=== PATIENT | male | born 1950 | race Caucasian/White ===

== ENCOUNTER 2019-07-13 12:11 | Inpatient (IN) | payer MEDICARE, BC ==
[2019-07-13] VITALS (521 sets, daily range): BP systolic 95–108; BP diastolic 83–88; PULSE 112–140; TEMP 97.9–98.2; O2SAT 80–100
[~2019-07-13] VITALS: Ht 182.9 cm; Wt 103.5 kg
[~2019-07-13 12:11] MED LIST: ERYTHROCIN STE500 M1 PO; NEOMYCIN SULFA500 MG PO
[2019-07-13] MEDS ORDERED: NORVASC 5MG5 MG/TAB PO (12:25)
[2019-07-13] MEDS ORDERED: TYLENOL 500MG500 MG PO (12:26)
[2019-07-13] MEDS ORDERED: ASPIRIN 32325 MG/TAB PO (12:26)
[2019-07-13] MEDS ORDERED: ADVIL200 MG PO (12:27)
[2019-07-13] MEDS ORDERED: DITROPAN 5MG TAB5 MG PO (12:27)
[2019-07-13 13:20] LABS: BASO # 0.1 (0.0-0.2); BASO % 0.5 % (0.0-2.0); GRAN # 6.5 (1.4-6.5); GRAN % 70.4 % (42.2-75.2); HEMATOCRIT 39.7 % (42.0-52.0); HEMOGLOBIN 12.8 g/dl (13.5-18.0); LYMPH # 1.9 (1.2-3.4); LYMPH % 20.8 % (20.0-51.0); MEAN CELL VOLUME 98 fl (80.0-100.0); MEAN CORPUSCULAR HEMOGLOBIN 31 pg (27.0-31.0); MEAN CORPUSCULAR HGB CONC 32 g/dl (33.0-37.0); MEAN PLATELET VOLUME 10.8 fl (7.4-10.4); MONO # 0.7 (0.1-0.6); MONO % 7.9 % (1.7-9.3); PLATELET COUNT 254 K/mm3 (130-400); RED BLOOD COUNT 4.07 M/mm3 (4.20-5.60); REDCELL DISTRIBUTION WIDTH-CV 14.3 % (11.5-14.5)
[2019-07-13 13:22] LABS: ALANINE AMINOTRANSFERASE 22 U/L (21-72); ALBUMIN 4.3 gm/dL (3.5-5.0); ALKALINE PHOSPHATASE 64 U/L (50-136); ANION GAP 10 mmol/L (7-16); AST,SGOT 27 U/L (15-37); BILIRUBIN,TOTAL 0.8 mg/dL (0.0-1.0); BLOOD UREA NITROGEN 24 mg/dL (9-20); CALCIUM 9.4 mg/dL (8.4-10.2); CARBON DIOXIDE 24 mmol/L (22-30); CHLORIDE 109 mmol/L (98-107); CREATININE, serum 0.76 (0.66-1.25); GLUCOSE 115 mg/dL (74-106); LIPASE 57 U/L (23-300); POTASSIUM 4.2 mmol/L (3.4-5.0); SODIUM 143 mmol/L (137-145)
[2019-07-13 13:36] LABS: TROPONIN-I < 0.012 ng/mL (0.000-0.035)
--- NOTE | 2019-07-13 14:30 | NUR ---
NOTIFIED AVSU GUZMAN OF PTS HR AFIB UP TO THE 140'S AND BP IN THE 80'S. ORDER RECEIVED FOR IVF BOLUS. NOTIFIED THIS RN TO CHANGE FROM CARDIZEM TO AMIO. ALSO FOR CARDIOLOGY CONSULT FOR POSSIBLE MICHAELLE/CARDIOVERSION. PT CHANGED TO AMIO AND ANOTHER IVF BOLUS HUNG. CAME BEDSIDE TO [facility]. PLAN TO DO MICHAELLE CARDIOVERSION TOMORROW. PT'S HR NOW RANGING 90-130'S. BP IN THE 100'S. PICC LINE PLACED FOR POSSIBLE NEED OF LEVOPHED. PT AND UPDATED ON PLAN. BEDSIDE TO [facility] PT. LABS DRAWN. HEPARIN GTT STARTED.
[2019-07-13 17:00] LABS: PARTIAL THROMBOPLASTIN TIME 29.1 SECONDS (26.0-37.0)
--- NOTE | 2019-07-13 17:14 | NUR ---
ECHO AND ANESTHESIA NOTIFIED OF MICHAELLE AND CARDIOVERSION TOMORROW. PLAN FOR AROUND 1000.
[2019-07-14] VITALS (871 sets, daily range): BP systolic 102–131; BP diastolic 64–102; PULSE 66–140; TEMP 97.7–98.1; O2SAT 77–100
[2019-07-14 06:10] LABS: BASO % 0.5 % (0.0-2.0); GRAN # 6.4 (1.4-6.5); GRAN % 75.4 % (42.2-75.2); HEMOGLOBIN 11.2 g/dl (13.5-18.0); LYMPH # 1.5 (1.2-3.4); LYMPH % 17.7 % (20.0-51.0); MEAN CELL VOLUME 98 fl (80.0-100.0); MEAN CORPUSCULAR HEMOGLOBIN 32 pg (27.0-31.0); MEAN CORPUSCULAR HGB CONC 32 g/dl (33.0-37.0); MEAN PLATELET VOLUME 11.1 fl (7.4-10.4); MONO # 0.5 (0.1-0.6); PLATELET COUNT 186 K/mm3 (130-400); RED BLOOD COUNT 3.52 M/mm3 (4.20-5.60); REDCELL DISTRIBUTION WIDTH-CV 14.5 % (11.5-14.5)
[2019-07-14 06:11] LABS: HEMATOCRIT 34.6 % (42.0-52.0)
--- NOTE | 2019-07-14 07:02 | NUR ---
Bedside report recieved from KIMBERLI Thurston. Patient sleeping at this time. Amiodarone and Heparin gtt rates and concentrations verified. MIVF rate verified. SHAILESH PICC uncomplicated. RFA peripheral sites x2 locked and uncomplicated. Patient with Afib noted on monitor. Care assumed at this time.
[2019-07-14 07:55] LABS: CALCIUM 8.7 mg/dL (8.4-10.2); CREATININE, serum 0.66 (0.66-1.25)
--- NOTE | 2019-07-14 10:00 | NUR ---
Dr. Salinas rounds at this time. Orders as entered CPOE.
--- NOTE | 2019-07-14 10:10 | NUR ---
Dr. Card rounds at this time. Orders as entered CPOE.
--- NOTE | 2019-07-14 10:30 | NUR ---
Bedside MICHAELLE/ cardioversion completed by Dr. Card at this time. Prior consent signed and on patient chart. Chad Figueroa CRNA present to provide and monitor sedation. This RN present to monitor and assist and Paola RN to assist with MICHAELLE. See associated moderate sedation assessment, flowsheet, and recovery documentation. Patient provided 1 shock of 150j per VORB by with successful cardioversion to NSR. Procedure lasts from 6910-1468. No complications noted. RT called for EKG to confirm rhythm conversion. Care ongoing.
--- NOTE | 2019-07-14 11:51 | NUR ---
Initial visit; Patient and his thanked Network Security Analyst for looking in on him and offering God's blessings.
[2019-07-14] MEDS ORDERED: ELIQUIS 5MG PO (15:10)
[2019-07-14] MEDS ORDERED: PACERONE200 MG PO (15:11)
--- NOTE | 2019-07-14 15:19 | NUR ---
PARKING [employer]AU[employer] student met with the patient and the patient's , Serina to complete initial intake. The patient lives in [place] with Serina. The patient denies DME usage and reports independence with ADLs. The patient's PCP is Dr. Rogers and patient receives medications from [facility] and [facility]. The patient does not have advanced directives in the EMR but reports they are completed and designate Serina. patient financial services coordinator will continue to follow to ensure a safe discharge.
--- NOTE | 2019-07-14 15:30 | NUR ---
Discharge education provided to patient and with understanding verbalized.
--- NOTE | 2019-07-14 15:36 | NUR ---
Patient discharged by ambulation at this time to private car. Care completed at this time.
== END 2019-07-14 15:36 | disposition home or self-care (01) | DRG 308 ==
LOC: COL.ER 12:11 → IMCU 14:37
PROVIDERS: Emergency Medicine; Physician Assistant; ADMIT Internal Medicine
PROC: 02HV33Z Insertion of Infusion Device into Superior Vena Cava, Percutaneous Approach (ICD-10-PCS; principal; 2019-07-13)
PROC: 5A2204Z Restoration of Cardiac Rhythm, Single (ICD-10-PCS; 2019-07-14)
DX: I48.0 Paroxysmal atrial fibrillation (principal); J96.01 Acute respiratory failure with hypoxia; Z85.46 Personal history of malignant neoplasm of prostate; Z96.652 Presence of left artificial knee joint; I95.9 Hypotension, unspecified; M19.90 Unspecified osteoarthritis, unspecified site; K21.9 Gastro-esophageal reflux disease without esophagitis; E78.5 Hyperlipidemia, unspecified; R79.89 Other specified abnormal findings of blood chemistry; N32.81 Overactive bladder
CPT/HCPCS: 99223-AI; 99239; C1751; J0282; J1644; J2704; J7030; J7060; Q9967

== ENCOUNTER 2020-12-20 14:59 | Outpatient (CLI) | payer MEDICARE, BC ==
[2020-12-20 14:15] VITALS: BP 115/76; PULSE 82; TEMP 98
[2020-12-20 14:30] VITALS: BP 117/82; PULSE 79; TEMP 98
[~2020-12-20 14:59] MED LIST changes: +ADVIL200 MG PO; +ASPIRIN 32325 MG/TAB PO; +DITROPAN 5MG TAB5 MG PO; +ELIQUIS 5MG PO; +NORVASC 5MG5 MG/TAB PO; +PACERONE200 MG PO; +TYLENOL 500MG500 MG PO
[2020-12-20 15:00] VITALS: BP 122/68; PULSE 70; TEMP 98
[2020-12-20 15:15] VITALS: BP 124/73; PULSE 72; TEMP 98
[2020-12-20 15:30] VITALS: BP 112/72; PULSE 74; TEMP 98
[2020-12-20 15:45] VITALS: BP 114/73; PULSE 77; TEMP 98
== END 2020-12-20 15:45 | disposition home or self-care (01) ==
LOC: EUO 14:59
DX: U07.1 COVID-19 (principal)
CPT/HCPCS: Q0244